=== PATIENT | female | born 1965 | race Two or more races ===

== ENCOUNTER 2019-08-14 06:20 | Emergency (ER) | payer OTHER ==
[~2019-08-14] VITALS: Ht 160 cm; Wt 65.8 kg
--- NOTE | 2019-08-14 06:25 | NUR ---
Pt BIBRA C/O GENERALIZED ABD PAIN X 1WEEK. +NAUSEA. PT AXO4. RESPIRATIONS EVEN AND UNLABORED. PT PUT ON THE BUILDING OFFICIAL AND PULSE OX. PENDING EVAL FROM ER .
--- NOTE | 2019-08-14 06:35 | NUR ---
PT AMBULATORY WITH STEADY GAIT, URINE SAMPLE OBTIANED.
--- NOTE | 2019-08-14 06:42 | NUR ---
18G RAC IV STARTED, LABS DRAWN AND SENT TO LAB.
[2019-08-14] MEDS ORDERED: FAMOTIDINE/PF INJ 20 MG/2 ML VIAL IV ONE ×2 (06:46→07:00)
[2019-08-14] MEDS ORDERED: ONDANSETRON HCL/PF 4 MG/2 ML VIAL ONE (06:46)
[2019-08-14] MEDS ORDERED: ONDANSETRON HCL/PF 4 MG/2 ML VIAL IVP ONE (07:00)
[2019-08-14] MEDS ORDERED: IV NS 0.9% 1,000 ML BAG IV ONE (07:00)
[2019-08-14 07:12] LABS: CALCIUM, SERUM 9.1 mg/dL (8.5-10.1); CARBON DIOXIDE 28 mmol/L (21-32); CHLORIDE 104 mmol/L (98-107); CREATININE 0.7 mg/dL (0.6-1.3); GLUCOSE 112 mg/dL (74-106); SODIUM SERUM 141 mmol/L (136-145); UREA NITROGEN, BLOOD 11 mg/dL (7-18)
[2019-08-14 07:20] LABS: ALANINE AMINOTRANSFERASE 34 U/L (12-78); ALBUMIN 3.9 g/dL (3.4-5.0); ALKALINE PHOSPHATASE 100 U/L (46-116); ASPARTATE AMINOTRANSFERASE 17 U/L (15-37); BILIRUBIN,DIRECT 0.1 mg/dL (0.0-0.2); BILIRUBIN,TOTAL 0.3 mg/dL (0.2-1.0); LIPASE 363 U/L (73-393)
--- NOTE | 2019-08-14 07:24 | NUR ---
Lachelle farley in [facility] - 08/14/19 at 0725 by PRASHANTH REPORT GIVEN TO ROSALINDA CHRISTENSEN FOR MARI.
--- NOTE | 2019-08-14 07:25 | NUR ---
REPORT GIVEN FOR DOUGLAS CHRISTENSEN FOR MARI.
[2019-08-14 07:26] LABS: APPEARANCE,URINE Clear (CLEAR); BILIRUBIN,URINE Negative (NEGATIVE); BLOOD, URINE Trace-intact Ery/uL (NEGATIVE); COLOR,URINE Yellow (YELLOW); KETONES,URINE Negative (NEGATIVE); LEUKOCYTE ESTERASE ,URINE Small (NEGATIVE); NITRITE, URINE Negative (NEGATIVE); PROTEIN,URINE Negative (NEGATIVE); UGLUCOSE Negative (NEGATIVE); UROBILINOGEN,URINE 0.2 EU/dL (0.2)
[2019-08-14] MEDS ORDERED: IV NS 0.9% 250 ML IV ONE (07:29)
[2019-08-14] MEDS ORDERED: CT SWABBABLE VALVE TRANS SET 1 EA INFUS.SET MC ONE (07:29)
[2019-08-14] MEDS ORDERED: IOHEXOL-300 100 ML VIAL IV ONE (07:30)
--- NOTE | 2019-08-14 07:44 | NUR ---
PATIENT AWAKE ALERT CONGOLESE SPEAKING HER FAMILY @ BEDSIDE MADE AWARE PLAN OF CARE ,PATIENT TO CT
[2019-08-14 07:48] LABS: BACTERIA,URINE 1+ /HPF (None Seen); SQUAMOUS EPITHELIAL CELL,UR Few /HPF (None Seen)
[2019-08-14 09:34] LABS: BASOPHILS % (AUTO) 0.7 % (0.0-2.0); EOSINOPHILS % (AUTO) 4.1 % (0.0-6.0); HEMATOCRIT 42 % (33-45); LYMPHOCYTES % (AUTO) 32.2 % (20.0-44.0); MEAN CORPUSCULAR HGB CONC 34 g/dl (31.0-36.0); MEAN CORPUSCULAR VOLUME 89 fL (82-100); MONOCYTES # (AUTO) 0.3 /CMM (0.1-1.30); NEUTROPHILS # (AUTO) 1.6 /CMM (1.8-8.9); PLATELET COUNT (AUTO) 253 /CMM (150-450); RED BLOOD CELL COUNT(AUTO) 4.66 MIL/uL (4.0-5.2); WHITE BLOOD COUNT (AUTO) 3.1 K/uL (4.3-11.0)
--- NOTE | 2019-08-14 11:17 | NUR ---
Patient discharged to home in stable condition. Written and verbal after care instructions given. Patient verbalizes understanding of instruction.
[2019-08-14 11:18] VITALS: BP 133/78
== END 2019-08-14 11:18 | disposition home or self-care (01) ==
LOC: ER 06:22
DX: N39.0 Urinary tract infection, site not specified (principal); K80.20 Calculus of gallbladder without cholecystitis without obstruction; I10 Essential (primary) hypertension; E78.5 Hyperlipidemia, unspecified; E03.9 Hypothyroidism, unspecified
CPT/HCPCS: 36415; 74177; 76705; 80048; 80076; 81001; 83690; 84484; 85025; 87086; 93005; 96374; 96375; 99284; J2405; J3490; J7030; J7050; Q9967; 81000-TC